=== PATIENT | male | born 1975 | race Native Hawaiian/Other Pacific Islander ===

== ENCOUNTER → 2017-07-03 | Outpatient (CLI) | payer OTHER ==
[~2017-07-03] MED LIST: CLIN150 PO; HYDR-3533 PO
[2017-07-04 17:49] LABS: APPEARANCE Normal; DOUBLE FORM 3.5 %; HEAD SHAPE ABNORMAL 26.5 %; MIDPIECE ABNORMAL 17.5 %; MOTILE/EJACULATE 6.6 x10(6) (>=9.0); MOTILE/mL 6.6 x10(6) (>=6.0); MOTILITY 23 % (>=40); SPERM/ML 28.7 x10(6) (>=15.0)
== END ==
LOC: CLAB 12:03
PROVIDERS: ATTEND Family Medicine
DX: Z31.41 Encounter for fertility testing (principal)
CPT/HCPCS: 89322

== ENCOUNTER 2018-01-24 22:22 | Observation (INO) ==
[2018-01-24] MEDS ORDERED: Aspirin 325 MG Tablet PO ONE (22:31)
[2018-01-24 22:54] LABS: Baso # (Auto) 0.1 th/mm3 (0.0-0.2); Baso % (Auto) 0.8 % (0.0-2.0); Eos # (Auto) 0.3 th/mm3 (0.0-0.4); Eos % (Auto) 3.1 % (0.0-4.0); Hemoglobin 17.5 gm/dL (13.0-17.0); Lymph # (Auto) 3.3 th/mm3 (1.0-4.8); Lymph % (Auto) 34.6 % (9.0-44.0); Mean Corpuscular Hemoglobin 31.2 pg (27.0-34.0); Mean Platelet Volume 6.9 fL (7.0-11.0); Mono # (Auto) 0.6 th/mm3 (0.0-0.9); Mono % (Auto) 6.7 % (0.0-8.0); Neut # (Auto) 5.2 th/mm3 (1.8-7.7); Neut % (Auto) 54.8 % (16.0-70.0); Platelet Count 312 th/mm3 (150-450); Red Blood Count 5.62 mil/mm3 (4.50-5.90); Red Cell Distribution Width 13.8 % (11.6-17.2); White Blood Count 9.4 th/mm3 (4.0-11.0)
--- NOTE | 2018-01-24 23:00 | XR ---
EXAM DATE: 01/24/2018 10:52 PM EST AGE/SEX: 42 years / Male INDICATIONS: Left sided chest pain and arm pain. CLINICAL DATA: This is the patient's initial encounter. Patient reports that signs and symptoms have been present for 1 day and indicates a pain score of 7/10. MEDICAL/SURGICAL HISTORY: None. None. COMPARISON: No prior exams available for comparison. FINDINGS: A single AP view of the chest demonstrates the lungs to be symmetrically aerated without evidence of mass, infiltrate or effusion. The cardiomediastinal contours are unremarkable. Osseous structures a re intact. CONCLUSION: No evidence of acute cardiopulmonary disease. Electronically signed by: Luc Jones MD 01/24/2018 10:59 PM EST
--- NOTE | 2018-01-24 23:08 | ED ---
HPI General Chief Complaint: Chest Pain Stated Complaint: Patient states sob/chest pain/left arm pain Time Seen by Provider: 01/24/18 22:31 Source: patient and family Mode of arrival: ambulatory Limitations: no limitations History of Present Illness HPI narrative: Mr Quiles is a 42 year old male who presents to the ED with chest pain since 4am this morning. The pain increases with deep breaths and radiates to his back and down his left arm. The left arm also goes numb and he has difficulty moving it for 2-5 minutes after the pain. He states the pain is a 4-5/10 and describes it as constant pressure over his chest. The patient also has a headache, palpitations with deep breaths, and fatigue. His states that at dinner today he became lightheaded and felt dizzy, but never lost consciousness. He denies nausea, vomiting, syncope, abdominal pain, or SOB. His Family History is positive for his father having a stent placed in his 40s. The patient smokes 1 pack of cigarettes per day but denies alcohol or drug use. Related Data Home Medications Medication Instructions Recorded Confirmed atorvastatin mg PO HS 01/25/18 Allergies Allergy/AdvReac Type Severity Reaction Status Date / Time No Known Allergies Allergy Verified 01/24/18 22:36 Review of Systems ROS: all other systems reviewed are negative PMFSH Medical History Medical History High cholesterol (Acute) Surgical History Surgical History No history of previous surgery (Acute) Social History Social History Substance History: No History of Abuse Second Hand Smoke Exposure: No Smoking Status: Heavy tobacco smoker Tobacco Type: Cigarettes How Often Do You Have a Drink Containing Alcohol: 2 to 4 times a month Recent Travel in [place] within the Last 8 Weeks: No Recent Out of Country Travel within the Last 8 Weeks: No Immunization History Tetanus Immunization: Unsure Exam Narrative Exam Narrative: GENERAL: Patient is well developed and well nourished male in NAD. SKIN: Warm and dry. HEAD: Atraumatic. Normocephalic. EYES: Pupils equal and round. No scleral icterus. No injection or drainage. ENT: No nasal bleeding or discharge. Mucous membranes pink and moist. NECK: Trachea midline. No JVD. CARDIOVASCULAR: Regular rate and rhythm. No murmurs, rubs, or gallops. RESPIRATORY: No accessory muscle use. Clear to auscultation. Breath sounds equal bilaterally. GASTROINTESTINAL: Abdomen soft, non-tender, nondistended. Hepatic and splenic margins not palpable. MUSCULOSKELETAL: Extremities without clubbing, cyanosis, or edema. No obvious deformities. NEUROLOGICAL: Awake and alert. No obvious cranial nerve deficits. Motor grossly within normal limits. Five out of 5 muscle strength in the arms and legs. Normal speech. PSYCHIATRIC: Appropriate mood and affect; insight and judgment normal. Course Initial Documented Vital Signs Temperature 98.5 F 01/24/18 22:24 Pulse Rate 91 H 01/24/18 22:24 Respiratory Rate 14 01/24/18 22:24 Blood Pressure 145/78 H 01/24/18 22:24 Pulse Oximetry 98 01/24/18 22:24 Last Documented Vital Signs Temperature 97.6 F 01/25/18 03:35 Pulse Rate 74 01/25/18 03:35 Respiratory Rate 17 01/25/18 03:35 Blood Pressure 117/66 01/25/18 03:35 Pulse Oximetry 99 01/25/18 03:35 Medical Decision Making JERSON Attestation JERSON supervised visit: Yes Attestation: I, Dr. Chester, have reviewed the advance practice practitioner's documentation and am in agreement, met with the patient face to face, made the diagnosis, and the medical decision making was done by me. *My assessment and Findings: Patient is a 42-year-old male who presents with complaint of chest pain that does not with exertion and occurs at rest. EKG sinus rhythm with some nonspecific T wave flattening but otherwise unremarkable. He is pain-free at time of my evaluation. He has been given aspirin. Chest x-ray is unremarkable. Labs unremarkable with a normal troponin. He has been placed in the chest pain center for serial troponins and EKGs. [facility] Narrative Medical decision making narrative: 42 yo male here for chest pain. Patient properly examined and found to have signs and symptoms concerning for ACS. patient has 4 risk factors including family history, male, cholesterol and smoking. Labs and imaging initially unremarcable. patient given aspirin. Currently asymptomatic. Dr Chester evaluated the patient and agrees with plan. Patient agrees to admission to the chest pain center. Admitted by me. Medical Screen Exam Complete: Yes Emergency Medical Condition: Yes Differential Diagnosis Differential Diagnosis: chest pain vs ACS vs atypical chest pain vs NSTEMI Medical Records Medical records reviewed: Yes I reviewed the patient's medical records. Lab Data Lab results reviewed: Yes I reviewed the patient's lab results. Lab results narrative: troponin and CKMB negative Result diagrams: 01/24/18 22:40 01/24/18 22:40 Lab Results 01/24/18 01/24/18 01/24/18 Range/Units 22:40 22:40 22:40 WBC 9.4 (4.0-11.0) th/mm3 RBC 5.62 (4.50-5.90) mil/mm3 Hgb 17.5 H (13.0-17.0) gm/dL Hct 50.0 (39.0-51.0) % MCV 89.0 (80.0-100.0) fL MCH 31.2 (27.0-34.0) pg MCHC 35.0 (32.0-36.0) % RDW 13.8 (11.6-17.2) % Plt Count 312 (150-450) th/mm3 MPV 6.9 L (7.0-11.0) fL Neut % (Auto) 54.8 (16.0-70.0) % Lymph % (Auto) 34.6 (9.0-44.0) % [place] % (Auto) 6.7 (0.0-8.0) % Eos % (Auto) 3.1 (0.0-4.0) % Baso % (Auto) 0.8 (0.0-2.0) % Neut # (Auto) 5.2 (1.8-7.7) th/mm3 Lymph # (Auto) 3.3 (1.0-4.8) th/mm3 [place] # (Auto) 0.6 (0.0-0.9) th/mm3 Eos # (Auto) 0.3 (0.0-0.4) th/mm3 Baso # (Auto) 0.1 (0.0-0.2) th/mm3 WBC Differential . Differential Comment Auto diff final PT 10.0 (9.8-11.6) sec INR 1.0 Ratio APTT 31.0 (23.4-31.7) sec D-Dimer Quant (PE/DVT) 0.33 (0.00-0.50) mg/L FEU Sodium 139 (136-145) meq/L Potassium 3.4 L (3.5-5.1) meq/L Chloride 102 (98-107) meq/L Carbon Dioxide 31.2 (21.0-32.0) meq/L Anion Gap 6 (5-15) meq/L BUN 13 (7-18) mg/dL Creatinine 1.10 (0.60-1.30) mg/dL Estimated GFR 74 L (>89) mL/min Random Glucose 99 (74-106) mg/dL Calcium 9.2 (8.5-10.1) mg/dL Magnesium 2.1 (1.5-2.5) mg/dL Total Bilirubin 0.4 (0.2-1.0) mg/dL AST 25 (15-37) U/L ALT 63 (12-78) U/L Alkaline Phosphatase 129 H (45-117) U/L Total Creatine Kinase 258 (39-308) U/L CK-MB (CK-2) 1.0 (0.5-3.6) ng/mL Troponin I Less than 0.02 L (0.02-0.05) ng/mL Total Protein 8.3 H (6.4-8.2) g/dL Albumin 4.3 (3.4-5.0) g/dL Lipase 123 (73-393) U/L 01/25/18 Range/Units 01:40 WBC (4.0-11.0) th/mm3 RBC (4.50-5.90) mil/mm3 Hgb (13.0-17.0) gm/dL Hct (39.0-51.0) % MCV (80.0-100.0) fL MCH (27.0-34.0) pg MCHC (32.0-36.0) % RDW (11.6-17.2) % Plt Count (150-450) th/mm3 MPV (7.0-11.0) fL Neut % (Auto) (16.0-70.0) % Lymph % (Auto) (9.0-44.0) % [place] % (Auto) (0.0-8.0) % Eos % (Auto) (0.0-4.0) % Baso % (Auto) (0.0-2.0) % Neut # (Auto) (1.8-7.7) th/mm3 Lymph # (Auto) (1.0-4.8) th/mm3 [place] # (Auto) (0.0-0.9) th/mm3 Eos # (Auto) (0.0-0.4) th/mm3 Baso # (Auto) (0.0-0.2) th/mm3 WBC Differential Differential Comment PT (9.8-11.6) sec INR Ratio APTT (23.4-31.7) sec D-Dimer Quant (PE/DVT) (0.00-0.50) mg/L FEU Sodium (136-145) meq/L Potassium (3.5-5.1) meq/L Chloride (98-107) meq/L Carbon Dioxide (21.0-32.0) meq/L Anion Gap (5-15) meq/L BUN (7-18) mg/dL Creatinine (0.60-1.30) mg/dL Estimated GFR (>89) mL/min Random Glucose (74-106) mg/dL Calcium (8.5-10.1) mg/dL Magnesium (1.5-2.5) mg/dL Total Bilirubin (0.2-1.0) mg/dL AST (15-37) U/L ALT (12-78) U/L Alkaline Phosphatase (45-117) U/L Total Creatine Kinase 198 (39-308) U/L CK-MB (CK-2) (0.5-3.6) ng/mL Troponin I Less than 0.02 L (0.02-0.05) ng/mL Total Protein (6.4-8.2) g/dL Albumin (3.4-5.0) g/dL Lipase (73-393) U/L Imaging Data Attestation: I personally reviewed and interpreted this imaging study as follows : Radiologist's impression: Chest X-Ray 01/24/18 22:31 CONCLUSION: No evidence of acute cardiopulmonary disease. ECG Data Attestation: I personally reviewed and interpreted this ECG as follows: Interpretation: EKG shows sinus rhythm with no sign of acute ischemia or arrhythmia. read by me and attenidng. Discharge Plan Discharge Disposition Patient Disposition: Still Patient Discharge Details Diagnosis: Chest pain, rule out acute myocardial infarction Physicians Team ED Provider: Naa Chester ED Midlevel Provider: Dipak Morelos Primary Care Provider: Primary Care Charlotte Lorenzo Attending Provider: Frances Mascorro ED Status: Left Department Discharge Information Discharge Date/Time: 01/25/18 00:28
[2018-01-24 23:10] LABS: D-Dimer 0.33 mg/L FEU (0.00-0.50)
[2018-01-24 23:31] LABS: Alanine Aminotransferase 63 U/L (12-78); Albumin 4.3 g/dL (3.4-5.0); Anion Gap 6 meq/L (5-15); Aspartate Aminotransferase 25 U/L (15-37); Blood Urea Nitrogen 13 mg/dL (7-18); Calcium 9.2 mg/dL (8.5-10.1); Carbon Dioxide 31.2 meq/L (21.0-32.0); Chloride 102 meq/L (98-107); Glomerular Filtration Rate 74 mL/min (>89); Glucose,Random 99 mg/dL (74-106); Lipase 123 U/L (73-393); Magnesium 2.1 mg/dL (1.5-2.5); Potassium 3.4 meq/L (3.5-5.1); Sodium 139 meq/L (136-145)
[2018-01-24 23:35] LABS: Alkaline Phosphatase 129 U/L (45-117); Creatine Kinase 258 U/L (39-308); Total Protein 8.3 g/dL (6.4-8.2)
[2018-01-24] MEDS ORDERED: Acetaminophen 500 MG Tablet PO PRN (23:58)
[2018-01-25 02:14] LABS: Creatine Kinase 198 U/L (39-308)
[2018-01-25 05:50] LABS: Creatine Kinase 203 U/L (39-308)
[2018-01-25] MEDS ORDERED: Ketorolac Inj 30 MG/ML (IVP) Vial IV.PUSH ONE (08:07)
[2018-01-25 08:19] VITALS: RESP 16
--- NOTE | 2018-01-25 08:20 | P.HPCA ---
History of Present Illness Primary Care Physician: Dr. Herrera Guevara Chief Complaint: Chest pain History of Present Illness: 42 year old male with history of hyperlipidemia and current smoker presents to ER for further evaluation of chest and left shoulder pain. Onset Monday. Increased in intensity Monday morning 4 a.m. while getting ready for work. Location left anterior chest, left shoulder, left side neck, and left scapula area. Characterized as pressure with intermittent "pinching" sensation. Moderate in severity. No associated symptoms of nausea, vomiting, dyspnea, or diaphoresis although does reports when pain becomes more intense feels mild shortness of breath. Duration constant since Monday. Movement of left arm/ shoulder does not make pain worse, however if arm remains in a certain position for any length of time left arm feels numb and weaker. Inspiration makes discomfort worse. No recent or remote injury to neck/back/shoulder. No recent illness. No relieving factors. Denies similar discomfort in the past. Past cardiac testing None Social history Known hyperlipidemia. No known diabetes or hypertension. Current 1 pack/day smoker. Rare alcohol use. No recreational drug use. . Physical job lifting. Family history Father VT early 40s, x1 cardiac stent placed. - Diagnosis (1) Atypical chest pain (2) Hyperlipidemia (3) Tobacco use (4) Hypokalemia Review of Systems All other systems reviewed negative except as stated in HPI PMFSH - History History Provided By: Patient, Significant Other - Medical History Medical History: Medical History (Last Reviewed 01/25/18 @ 08:19 by ORI Sweeney) High cholesterol - Surgical History Surgical History: Surgical History (Last Reviewed 01/25/18 @ 08:19 by ORI Sweeney) No history of previous surgery - Family History Family History: Family History (Last Updated 01/25/18 @ 08:19 by ORI Sweeney) Father CAD (coronary artery disease) - Social History I have reviewed the patient's Social History: Yes - Tobacco History Second Hand Smoke Exposure: No Tobacco Use In Past 30 Days: Yes Smoking Status: Current every day smoker Tobacco Type: Cigarettes Packs Per Day: 1 Years Smoked: 25 - Alcohol History How Often Do You Have a Drink Containing Alcohol: Monthly or less - Substance Use History Substance History: No History of Abuse - Travel History History of Recent Travel: No Recent Travel in the [facility] Within the Last 8 Weeks: No Recent Travel Out of the Country Within the Last 8 Weeks: No - Immunization History Tetanus Immunization: Unsure Medications and Allergies Active Medications: Active Medications Acetaminophen (Tylenol) 500 mg PO Q4H PRN PRN Reason: HEADACHE Hydrocodone Bitart/Acetaminophen ([place] 7.5/325) 1 tab PO Q4H PRN PRN Reason: PAIN SCALE 1 TO 7 Ondansetron HCl (Zofran Inj) 4 mg IV.PUSH Q6H PRN PRN Reason: NAUSEA Sodium Chloride (Ns Flush) 2 ml IV.FLUSH BID KERRIE Sodium Chloride (Ns Flush) 2 ml IV.FLUSH PRN PRN PRN Reason: FLUSH AFTER USING IV ACCESS Allergies Allergy/AdvReac Type Severity Reaction Status Date / Time No Known Allergies Allergy Verified 01/24/18 22:36 Home Medications Medication Instructions Recorded Confirmed Type atorvastatin mg PO HS 01/25/18 History Exam Vital signs: Vital Signs 01/24/18 22:24 01/24/18 22:32 01/24/18 22:38 Temperature 98.5 F Pulse Rate 91 H 94 H 97 H Respiratory Rate 14 22 Blood Pressure 145/78 H 164/100 H Pulse Oximetry 98 98 01/24/18 22:40 01/25/18 00:00 01/25/18 00:22 Temperature 98.1 F Pulse Rate 80 79 Respiratory Rate 17 20 Blood Pressure 111/66 128/66 Pulse Oximetry 98 96 99 01/25/18 01:10 01/25/18 03:35 01/25/18 04:00 Temperature 97.6 F Pulse Rate 73 74 74 Respiratory Rate 17 Blood Pressure 117/66 Pulse Oximetry 99 Intake & Output 01/24/18 01/25/18 01/25/18 18:59 06:59 18:59 Weight 90.718 kg Other: Weight On Admission 90.718 kg Narrative: GENERAL: Alert WN, WD, NAD, pleasant male HEAD: NC, AT EYES: Sclera clear, conjunctiva without injection, pupils equal and round ENT: Mucous membranes pink and moist NECK: Supple, no masses, trachea midline CV: RRR, without murmur, rub, gallop, no JVD, S1-S2 no S3-S4. No carotid bruits. Left anterior chest pain reproducible with palpation. RESP: Clear lungs throughout bilateral, diminished bases, no crackles, wheeze, rhonchi, symmetrical chest rise, nonlabored, able to speak in full sentences ABD: Soft, NT, ND, no masses, positive bowel tones BACK: No scoliosis EXT: Pulses +2x4, no dependent edema MS: left scapula tender with palpation, no limited range of motion of shoulder or cervical region, normal tone x4 extremities, no obvious deformities, full range of motion NEURO: CN II through CN XII grossly intact, motor strength 5/5 PSYCH: A+O x3, pleasant affect, appropriate speech, mood, insight and judgment SKIN: Normal turgor, normal texture, no lesions, no rashes, brisk cap refill, even hair distribution Results 01/24/18 22:40 01/24/18 22:40 Cardiac Enzymes 01/24/18 01/25/18 01/25/18 Range/Units 22:40 01:40 04:25 AST 25 (15-37) U/L CK-MB (CK-2) 1.0 (0.5-3.6) ng/mL Troponin I Less than 0.02 L Less than 0.02 L Less than 0.02 L (0.02-0.05) ng/mL Coagulation 01/24/18 Range/Units 22:40 PT 10.0 (9.8-11.6) sec APTT 31.0 (23.4-31.7) sec CBC 01/24/18 Range/Units 22:40 WBC 9.4 (4.0-11.0) th/mm3 RBC 5.62 (4.50-5.90) mil/mm3 Hgb 17.5 H (13.0-17.0) gm/dL Hct 50.0 (39.0-51.0) % Plt Count 312 (150-450) th/mm3 Neut # (Auto) 5.2 (1.8-7.7) th/mm3 Lymph # (Auto) 3.3 (1.0-4.8) th/mm3 [place] # (Auto) 0.6 (0.0-0.9) th/mm3 Eos # (Auto) 0.3 (0.0-0.4) th/mm3 Baso # (Auto) 0.1 (0.0-0.2) th/mm3 Comprehensive Metabolic Panel 01/24/18 Range/Units 22:40 Sodium 139 (136-145) meq/L Potassium 3.4 L (3.5-5.1) meq/L Chloride 102 (98-107) meq/L Carbon Dioxide 31.2 (21.0-32.0) meq/L BUN 13 (7-18) mg/dL Creatinine 1.10 (0.60-1.30) mg/dL Calcium 9.2 (8.5-10.1) mg/dL AST 25 (15-37) U/L ALT 63 (12-78) U/L Alkaline Phosphatase 129 H (45-117) U/L Total Protein 8.3 H (6.4-8.2) g/dL Albumin 4.3 (3.4-5.0) g/dL Intake and Output 01/24/18 01/25/18 01/25/18 22:59 06:59 14:59 Other: Weight 90.718 kg 90.718 kg Weight On Admission 90.718 kg - Imaging and Cardiology Imaging: Impressions Chest X-Ray 01/24/18 22:31 CONCLUSION: No evidence of acute cardiopulmonary disease. EKG interpretations - EKG EKG results cardiology: sinus rhythm, normal axis, normal QRS, normal ST/T Caprini VTE Risk Assessment Caprini VTE Risk Assessment: No/Low Risk (score <= 1) Caprini Risk Assessment Model: Point Value = 1 Point Value = 2 Point Value = 3 Point Value = 5 Age 41-60 Minor surgery BMI > 25 kg/m2 Swollen legs Varicose veins or History of unexplained or recurrent spontaneous Oral contraceptives or hormone replacement Sepsis (< 1 month) Serious lung disease, including pneumonia (< 1 month) Abnormal pulmonary function Acute myocardial infarction Congestive heart failure (< 1 month) History of inflammatory bowel disease Medical patient at bed rest Age 61-74 Arthroscopic surgery Major open surgery (> 45 min) Laparoscopic surgery (> 45 min) Malignancy Confined to bed (> 72 hours) Immobilizing plaster cast Central venous access Age >= 75 History of VTE Family history of VTE Factor V Leiden Prothrombin [id number] Lupus anticoagulant Anticardiolipin antibodies Elevated serum homocysteine Heparin-induced thrombocytopenia Other congenital or acquired thrombophilia Stroke (< 1 month) Elective arthroplasty Hip, pelvis, or leg fracture Acute spinal cord injury (< 1 month) Prophylaxis Regimen: Total Risk Factor Score Risk Level Prophylaxis Regimen 0-1 Low Early ambulation 2 Moderate Order ONE of the following: *Sequential Compression Device (SCD) *Heparin 5000 units SQ BID 3-4 Higher Order ONE of the following medications: *Heparin 5000 units SQ TID *Enoxaparin/Lovenox 40 mg SQ daily (WT < 150 kg, CrCl > 30 mL/min) *Enoxaparin/Lovenox 30 mg SQ daily (WT < 150 kg, CrCl > 10-29 mL/min) *Enoxaparin/Lovenox 30 mg SQ BID (WT < 150 kg, CrCl > 30 mL/min) AND/OR *Sequential Compression Device (SCD) 5 or more Highest Order ONE of the following medications: *Heparin 5000 units SQ TID (Preferred with Epidurals) *Enoxaparin/Lovenox 40 mg SQ daily (WT < 150 kg, CrCl > 30 mL/min) *Enoxaparin/Lovenox 30 mg SQ daily (WT < 150 kg, CrCl > 10-29 mL/min) *Enoxaparin/Lovenox 30 mg SQ BID (WT < 150 kg, CrCl > 30 mL/min) AND *Sequential Compression Device (SCD) Assessment and Plan - Assessment (1) Atypical chest pain Code(s): R07.89 - Other chest pain Status: Acute Plan: Admitted to chest pain center. ACS ruled out with 3 sets of EKGs and cardiac enzymes. Monitored on telemetry overnight. Will be seen and evaluated by Dr. Rei Maharaj. Discomfort not cardiac related, appears musculoskeletal in nature. Toradol 30 mg IV x1 dose now. Discussed possible exercise cardiac testing, not related to presenting symptoms but due to risk factors including smoking, hyperlipidemia, and early onset family history. Further disposition to follow after evaluation by signals collector/analyst. Patient and verbalize understanding and agreeable to plan of care. (2) Hyperlipidemia Code(s): E78.5 - Hyperlipidemia, unspecified Status: Chronic Plan: Continue atorvastatin. Reinforced in addition to medication, lifestyle and dietary modifications. (3) Tobacco use Code(s): Z72.0 - Tobacco use Status: Chronic Plan: Strongly encouraged and stressed the importance of tobacco cessation. Instructed to quit smoking, especially with known early onset cardiovascular disease. Discussed in length Tobacco Free [place] Program available and contact information will be placed on discharge instructions. (4) Hypokalemia Code(s): E87.6 - Hypokalemia Status: Acute Plan: 20 Meq KCL x1 dose now. H&P: Quality - VTE Deep Vein Thrombosis/Pulmonary Embolism Present on Admission: No (2) Hyperlipidemia Qualifiers: Hyperlipidemia type: unspecified Qualified Code(s): E78.5 - Hyperlipidemia, unspecified
--- NOTE | 2018-01-25 12:02 | TR ---
Date Performed: 01/25/2018 Time Performed: 10:29:46 DOCTOR: Rei Maharaj DRUG LIST: CLINICAL HISTORY: REASON FOR TEST: REASON FOR ENDING: OBSERVATION: CONCLUSION: [place] protocol completed. Stopped sec to reaching target heart rate and leg fatigue. Maximum GB=450 Max HR Achieved=85.0% Maximum HD=670/68 Total Exercise Time=7:36. No reprod chest dis comfort. No ectopy. Upsloping st segments. Good exercise tolerance. Normal bp response. During recove ry minute 4, slight st depresion inferior and lateral, baseline EKG nonspecific t wave changes. COMMENTS: Conclusion: Normal treadmill exercise. No evidence of ischemia.
[2018-01-25 12:05] VITALS: BP 105/65; PULSE 90; TEMP 98.4; O2SAT 95
--- NOTE | 2018-01-25 13:32 | ECG ---
Date Performed: 01/25/2018 Time Performed: 01:43:45 PTAGE: 42 years EKG: Sinus rhythm NORMAL ECG Since PREVIOUS TRACING , no significant change noted DOCTOR: Rei Maharaj Interpretating Date/Time 01/25/2018 13:31:34
--- NOTE | 2018-01-25 13:36 | ECG ---
Date Performed: 01/24/2018 Time Performed: 22:34:25 PTAGE: 42 years EKG: Sinus rhythm Normal ECG NO PREVIOUS TRACING . DOCTOR: Rei Maharaj Interpretating Date/Time 01/25/2018 13:33:54
--- NOTE | 2018-01-25 13:58 | ECG ---
Date Performed: 01/25/2018 Time Performed: 04:40:07 PTAGE: 42 years EKG: Sinus rhythm Normal ECG PREVIOUS TRACING : 01/25/2018 01.43 Since previous tracing, no significant change noted DOCTOR: Rei Maharaj Interpretating Date/Time 01/25/2018 13:58:12
== END 2018-01-25 13:20 | disposition home or self-care (01) ==
LOC: NEDA 22:22 → NEPE 22:22 → NEDA 01-25 00:28 → NEPGCP 01-25 00:36
PROVIDERS: ADMIT Internal Medicine Interventional Cardiology; ATTEND Internal Medicine Interventional Cardiology